=== PATIENT | male | born 1980 | race Caucasian/White ===

== ENCOUNTER 2023-10-14 16:16 | Emergency (ER) | payer SELFPAY ==
[2023-10-14 16:29] VITALS: BP 199/106; PULSE 91; RESP 16; TEMP 36.8; O2SAT 98
--- NOTE | 2023-10-14 16:59 | ED.DENTAL ---
HPI - Dental/Oral General Chief complaint: Dental/Oral Stated complaint: Swollen Jaw/Tooth Pain Time Seen by Provider: 10/14/23 16:59 Source: patient, RN notes reviewed and old records reviewed Mode of arrival: ambulatory Limitations: no limitations History of Present Illness HPI Narrative: Patient complains of dental pain and left-sided facial swelling. He reports that he has ?bad teeth? and that he has had dental pain for about 1 week. He reports that right-sided facial swelling began today. He has been taking Tylenol and ibuprofen without relief. He denies any injury or trauma. He is able to manage his own secretions, no drooling. No stridor. Swelling does not extend into the neck. Related Data Allergies Allergy/AdvReac Type Severity Reaction Status Date / Time Penicillins Allergy Swelling Verified 10/14/23 16:40 Review of Systems Review of Systems: All systems reviewed & are unremarkable except as noted in HPI and below Constitutional: Constitutional: Reports no additional constitutional complaints ENT: Reports system reviewed and no additional complaints, except as documented, Reports as per HPI, Reports dental pain, Reports facial pain, Denies throat swelling and Denies tongue swelling Cardiovascular: Cardiovascular: Reports no additional cardiovascular complaints Respiratory: Respiratory: Reports no additional respiratory complaints Gastrointestinal: Gastrointestinal: Reports no additional gastrointestinal complaints PMFSH Comments At the time of my signature, I reviewed and agree with the nursing past medical, surgical, social, and family history. There is no relevant family history pertinent to the patient complaint. Exam Const: General: cooperative, no acute distress, alert and awake Orientation/consciousness: oriented to person, oriented to place and oriented to time HENMT: Head: normal to inspection Ears: TM's normal bilaterally Face and sinus: other (Left-sided facial swelling) Mouth: Yes malodorous breath and No trismus Teeth and gingiva: caries, poor dentition and other (Severe decay of teeth 13 through 15, swelling of gingiva, drainage) Neck: Neck: full ROM, nontender and No submandibular swelling Lymphatic: lymphadenopathy (left submadibular) Resp: Effort & Inspection: normal respiratory effort and able to speak in complete sentences Auscultation: clear to auscultation bilaterally, no crackles, no rales, no rhonchi and no wheezes Cardio: Palpation: normal PMI Rate: regular rate Rhythm: regular rhythm Heart sounds: S1 normal heart sound present and S2 normal heart sound present Neuro: General: oriented to person, oriented to place and oriented to time Cranial nerves: Yes CN's II-XII intact bilaterally Psych: Appearance: grossly normal Thought process: Normal thought process present Insight: Good insight present (Psych) Judgement: Good judgement present (Psych) Course Course Level of Care: Express Care Visit Vital Signs Vital signs: Vital Signs Temperature 98.3 F 10/14/23 16:29 Pulse Rate 91 10/14/23 16:29 Respiratory Rate 16 10/14/23 16:29 Blood Pressure 199/106 H 10/14/23 16:29 Pulse Oximetry 98 10/14/23 16:29 Temperature 98.3 F 10/14/23 16:29 Pulse Rate 91 10/14/23 16:29 Respiratory Rate 16 10/14/23 16:29 Blood Pressure 178/102 H 10/14/23 17:06 Pulse Oximetry 98 10/14/23 16:29 Reviewed MDM - Dental/Oral MDM Narrative Medical decision making narrative: Patient with significant dental infection, left upper. Poor dentition in general. He has associated facial swelling that does not extend into the neck. No immediate concern for airway compromise. Strict emergency precautions discussed. Need to follow-up with dentist discussed at length. Very elevated blood pressure was discussed with him. He is encouraged to follow up with primary care provider without fail. No chest pain, no shortness of breath, no dizziness. Emergency department
[2023-10-14 17:06] VITALS: BP 178/102
== END 2023-10-14 17:24 | disposition home or self-care (01) ==
PROVIDERS: Emergency Provider Nurse Practitioner Family
DX: K04.7 Periapical abscess without sinus (principal); R03.0 Elevated blood-pressure reading, without diagnosis of hypertension
CPT/HCPCS: 99203; G0463